=== PATIENT | male | born 1960 | race Caucasian/White ===

== ENCOUNTER 2017-01-15 16:43 | Emergency (ER) | payer OTHER ==
[~2017-01-15] VITALS: Ht 188 cm; Wt 172.4 kg
[~2017-01-15 16:43] MED LIST: ASPI32ECTA PO; FOLI1TAB2 PO; FURO20TA2 PO; IBUPOTC PO; LISI10TA2 PO; LORA10TA2 PO; LOSA50TA21 PO; MECL25CH PO; METH2.5TA PO; OMEP20CA3 PO; PROA1AER INH; SYMB16INH INH; ZOFR4TAB3 PO
[2017-01-15] MEDS ORDERED: NS 500 ML IV ONE (17:30)
[2017-01-15 17:58] VITALS: BP 152/70; O2SAT 96
== END 2017-01-15 18:01 | disposition home or self-care (01) ==
LOC: EDBD 16:43 → M ED 17:53
DX: T67.6XXA Heat fatigue, transient, initial encounter (principal); X58.XXXA Exposure to other specified factors, initial encounter; Y92.89 Other specified places as the place of occurrence of the external cause; Y93.89 Activity, other specified; Y99.9 Unspecified external cause status